=== PATIENT | male | born 1935 | race Caucasian/White ===

== ENCOUNTER 2020-05-06 17:01 | Observation (INO) ==
[2020-05-06 18:25] LABS: Basophils % 0.4 % (0.0-0.8); Eosinophils # 0.1 10*3/uL (0.0-0.87); Eosinophils % 0.7 % (0.00-10.9); Hematocrit 46.8 VOL% (42.0-52.0); Hemoglobin 14.6 GM/DL (14.0-18.0); Immature Granulocytes % 0.9 %; Immature Granulocytes Absolute 0.06 #; Lymphocytes # 1.8 10*3/uL (1.4-4.0); Lymphocytes % 26.4 % (21.2-54.2); Mean Corpuscular HGB Conc 31.2 GM/DL (32-36); Mean Corpuscular Volume 91.2 FL (87-102); Mean Platelet Volume 9.6 FL (9.6-12.0); Monocytes % 10.3 % (1.7-12.7); Neutrophils % 61.3 % (38.7-73.9); Platelet Count 184 T/CUMM (130-400); Red Blood Count 5.13 MC/CUMM (3.8-5.5); Red Cell Distribution Width 13.9 % (9.3-17.3); White Blood Count 6.9 T/CUMM (4-12)
[2020-05-06 18:45] LABS: Albumin 3.3 G/DL (3.4-5.0); Bilirubin,Total 0.5 MG/DL (0.2-1.0); Calcium 9.5 MG/DL (8.5-10.1); Total Protein 7.4 G/DL (6.4-8.3)
[2020-05-06 19:00] LABS: Bilirubin,Urine Negative (Negative); Blood, Urine Negative (Negative); Glucose,Urine (UA) >=500 mg/dL (Negative); Hyaline Casts,Urine 30 /LPF (0-3); Ketones,Urine Negative (Negative); Mucus,Urine Occasional /LPF (Occasional); Nitrite,Urine Negative (Negative); Protein,Urine 30 MG/DL; RBC,Urine 1 /HPF (0-4); Squamous Epithelial Cell,Urine Occasional /HPF (0-10); Urine Appearance CLEAR (Clear); Urine Color Yellow (Yellow); Urine Specific Gravity 1.013 (1.001-1.035); Urine Urobilinogen < 2.0 EU/DL (0.2-1.0); WBC,Urine <1 /HPF (0-6)
[2020-05-06] MEDS ORDERED: SODIUM CHLORIDE 0.9% 1,000 ML IV STA (19:23)
[2020-05-06] MEDS ORDERED: INSULIN REGULAR 100 UNIT/ML IV ONE (19:24)
[2020-05-06] MEDS ORDERED: ASPIRIN 325 MG TABLET PO STA (19:29)
[2020-05-06] MEDS ORDERED: DEXTROSE 50% 25 GM/50 ML VIAL IV PRN (22:31)
[2020-05-06] MEDS ORDERED: GLUCAGON 1 MG VIAL IM PRN (22:31)
[2020-05-06] MEDS ORDERED: ONDANSETRON 4 MG/2 ML VIAL IV PRN (22:31)
[2020-05-06] MEDS ORDERED: INFLUENZA VIRUS VACCINE 0.5 ML SYRINGE IM ONE (22:44)
[2020-05-06] MEDS: DOCUSATE SODIUM 100 MG CAPSULE PO SCH (23:11)
[2020-05-07] MEDS: SODIUM CHLORIDE 0.9% 1,000 ML IV SCH ×4 (02:39→22:24)
[2020-05-07] MEDS ORDERED: GLUCAGON 1 MG VIAL IM PRN (07:56)
[2020-05-07] MEDS ORDERED: DEXTROSE 50% 25 GM/50 ML VIAL IV PRN (07:56)
[2020-05-07] MEDS: sitaGLIPtin 25 MG TABLET PO SCH (09:35)
[2020-05-07] MEDS: DOCUSATE SODIUM 100 MG CAPSULE PO SCH ×2 (09:36→22:24)
[2020-05-07] MEDS: ATORVASTATIN 40 MG TABLET PO SCH (09:36)
[2020-05-07] MEDS: PANTOPRAZOLE 40 MG TABLET PO SCH (09:36)
[2020-05-07] MEDS: ASPIRIN EC 81 MG TABLET PO SCH (09:36)
[2020-05-07] MEDS: lisinopriL 5 MG TABLET PO SCH (09:36)
[2020-05-07] MEDS: INSULIN LISPRO 100 UNIT/ML SUBCUT SCH ×5 (10:52→22:23)
[2020-05-07] MEDS: INSULIN GLARGINE 100 UNIT/ML SUBCUT SCH (10:53)
[2020-05-07] MEDS: ACETAMINOPHEN 325 MG TABLET PO PRN (14:32)
[2020-05-07] MEDS: APIXABAN 2.5 MG TABLET PO SCH (22:24)
[2020-05-08] MEDS: SODIUM CHLORIDE 0.9% 1,000 ML IV SCH ×3 (05:44→23:05)
[2020-05-08] MEDS: INSULIN LISPRO 100 UNIT/ML SUBCUT SCH ×6 (08:04→21:23)
[2020-05-08] MEDS: DOCUSATE SODIUM 100 MG CAPSULE PO SCH ×2 (09:44→21:23)
[2020-05-08] MEDS: ATORVASTATIN 40 MG TABLET PO SCH (09:44)
[2020-05-08] MEDS: INSULIN GLARGINE 100 UNIT/ML SUBCUT SCH (09:44)
[2020-05-08] MEDS: sitaGLIPtin 25 MG TABLET PO SCH (09:44)
[2020-05-08] MEDS: lisinopriL 5 MG TABLET PO SCH (09:45)
[2020-05-08] MEDS: PANTOPRAZOLE 40 MG TABLET PO SCH (09:45)
[2020-05-08] MEDS: APIXABAN 2.5 MG TABLET PO SCH ×2 (09:45→21:23)
[2020-05-08] MEDS: ASPIRIN EC 81 MG TABLET PO SCH (09:45)
[2020-05-08] MEDS: ACETAMINOPHEN 325 MG TABLET PO PRN (18:30)
[2020-05-09 07:55] VITALS: BP 139/64
[2020-05-09] MEDS: INSULIN LISPRO 100 UNIT/ML SUBCUT SCH ×2 (07:56)
== END 2020-05-09 10:10 | disposition home or self-care (01) ==
LOC: N.3E 17:01 → N.ED 17:01 → N.3E 22:04
PROVIDERS: ADMIT Family Medicine; ATTEND Family Medicine

== ENCOUNTER 2022-05-31 07:36 | Inpatient (IN) ==
[2022-05-31] MEDS ORDERED: PIPERACILLIN/TAZOBACTAM 3,375 MG in SODIUM CHLORIDE 0.9% 100 ML IV STA (08:40)
[2022-05-31] MEDS ORDERED: methylPREDNISolone SOD SUC 125 MG/2 ML VIAL IV STA (08:40)
[2022-05-31 08:50] LABS: Albumin 2.1 G/DL (3.4-5.0); Bilirubin,Total 0.5 MG/DL (0.20-1.00); Osmolality,Calculated 281.8 MOS/KG (273-304); Potassium 4.2 MMOL/L (3.5-5.1)
[2022-05-31] MEDS ORDERED: SODIUM CHLORIDE 0.9% 1,000 ML IV STA (09:47)
[2022-05-31] MEDS ORDERED: ONDANSETRON 4 MG/2 ML VIAL IV PRN (10:19)
[2022-05-31] MEDS ORDERED: ACETAMINOPHEN 325 MG TABLET PO PRN (10:19)
[2022-05-31 10:56] LABS: Basophils % 0.2 % (0.0-0.8); Hemoglobin 13.4 GM/DL (14.0-18.0); Immature Granulocytes % 0.7 %; Immature Granulocytes Absolute 0.12 #; Lymphocytes # 0.6 10*3/uL (1.4-4.0); Lymphocytes % 3.6 % (21.2-54.2); Mean Corpuscular HGB Conc 31.9 GM/DL (32-36); Mean Corpuscular Volume 89.2 FL (87-102); Mean Platelet Volume 11.7 FL (9.6-12.0); Monocytes # 0.8 10*3/uL (0.11-0.8); Monocytes % 4.5 % (1.7-12.7); Platelet Count 254 T/CUMM (130-400); Red Blood Count 4.71 MC/CUMM (3.8-5.5); Red Cell Distribution Width 14.2 % (9.3-17.3); White Blood Count 17.7 T/CUMM (4-12)
[2022-05-31 11:41] LABS: Lymphocytes 1 % (20-55); Total Cells Counted 100
[2022-05-31 11:44] LABS: Platelet Estimate Normal
[2022-05-31] MEDS: SODIUM CHLORIDE 0.9% 1,000 ML IV SCH ×2 (12:07→21:17)
[2022-05-31] MEDS ORDERED: NITROGLYCERIN SL 0.4 MG TABLET SL PRN (17:13)
[2022-05-31] MEDS: PIPERACILLIN/TAZOBACTAM 3,375 MG in SODIUM CHLORIDE 0.9% 100 ML IV SCH (19:16)
[2022-05-31] MEDS: DOCUSATE SODIUM 100 MG CAPSULE PO SCH (21:18)
[2022-05-31] MEDS: APIXABAN 2.5 MG TABLET PO SCH (21:18)
[2022-05-31] MEDS: METOPROLOL TARTRATE 25 MG TABLET PO SCH (21:18)
[2022-05-31] MEDS: MIRTAZAPINE 15 MG TABLET PO SCH (21:18)
[2022-05-31] MEDS: PANTOPRAZOLE 40 MG TABLET PO SCH (21:18)
[2022-05-31] MEDS: ZINC OXIDE 20% OINT 28.35 GM TUBE TOP SCH (21:19)
[2022-06-01] MEDS: PIPERACILLIN/TAZOBACTAM 3,375 MG in SODIUM CHLORIDE 0.9% 100 ML IV SCH ×3 (01:46→22:59)
[2022-06-01] MEDS: SODIUM CHLORIDE 0.9% 1,000 ML IV SCH ×3 (04:01→20:24)
[2022-06-01] MEDS ORDERED: INSULIN GLARGINE 100 UNIT/ML SUBCUT SCH (09:00)
[2022-06-01] MEDS: NYSTATIN 500,000 UNIT/5 ML UDCUP PO SCH ×3 (11:04→18:38)
[2022-06-01] MEDS: FLUCONAZOLE 100 MG TABLET PO SCH (11:05)
[2022-06-01] MEDS: ASPIRIN EC 81 MG TABLET PO SCH (11:05)
[2022-06-01] MEDS: APIXABAN 2.5 MG TABLET PO SCH ×2 (11:05→20:45)
[2022-06-01] MEDS: DOCUSATE SODIUM 100 MG CAPSULE PO SCH ×2 (11:05→20:45)
[2022-06-01] MEDS: DILTIAZEM CD 240 MG CAPSULE PO SCH (11:05)
[2022-06-01] MEDS: ATORVASTATIN 40 MG TABLET PO SCH (11:06)
[2022-06-01] MEDS: FOLIC ACID 1 MG TABLET PO SCH (11:06)
[2022-06-01] MEDS: FUROSEMIDE 20 MG TABLET PO SCH (11:06)
[2022-06-01] MEDS: METOPROLOL TARTRATE 25 MG TABLET PO SCH ×2 (11:07→20:45)
[2022-06-01] MEDS: PANTOPRAZOLE 40 MG TABLET PO SCH ×3 (11:07→20:46)
[2022-06-01] MEDS: SERTRALINE 50 MG TABLET PO SCH (11:10)
[2022-06-01] MEDS: ZINC OXIDE 20% OINT 28.35 GM TUBE TOP SCH (11:37)
[2022-06-01] MEDS: ZINC OXIDE 16% PASTE 57 GM TUBE TOP SCH ×2 (11:54→20:46)
[2022-06-01] MEDS ORDERED: GLUCAGON 1 MG VIAL IM PRN (12:58)
[2022-06-01] MEDS: INSULIN LISPRO 100 UNIT/ML SUBCUT SCH ×2 (17:15→20:46)
[2022-06-01] MEDS: MIRTAZAPINE 15 MG TABLET PO SCH (20:45)
[2022-06-02] MEDS: SODIUM CHLORIDE 0.9% 1,000 ML IV SCH ×3 (02:01→20:27)
[2022-06-02] MEDS: PIPERACILLIN/TAZOBACTAM 3,375 MG in SODIUM CHLORIDE 0.9% 100 ML IV SCH ×3 (06:31→20:30)
[2022-06-02] MEDS: NYSTATIN 500,000 UNIT/5 ML UDCUP PO SCH ×3 (10:51→18:06)
[2022-06-02] MEDS: ASPIRIN EC 81 MG TABLET PO SCH (10:52)
[2022-06-02] MEDS: DILTIAZEM CD 240 MG CAPSULE PO SCH (10:53)
[2022-06-02] MEDS: FLUCONAZOLE 100 MG TABLET PO SCH (10:53)
[2022-06-02] MEDS: DOCUSATE SODIUM 100 MG CAPSULE PO SCH ×2 (10:53→20:22)
[2022-06-02] MEDS: APIXABAN 2.5 MG TABLET PO SCH ×2 (10:53→20:22)
[2022-06-02] MEDS: FOLIC ACID 1 MG TABLET PO SCH (10:54)
[2022-06-02] MEDS: ATORVASTATIN 40 MG TABLET PO SCH (10:54)
[2022-06-02] MEDS: INSULIN GLARGINE 100 UNIT/ML SUBCUT SCH ×2 (10:54→20:23)
[2022-06-02] MEDS: FUROSEMIDE 20 MG TABLET PO SCH (10:54)
[2022-06-02] MEDS: PANTOPRAZOLE 40 MG TABLET PO SCH ×3 (10:55→20:23)
[2022-06-02] MEDS: METOPROLOL TARTRATE 25 MG TABLET PO SCH ×2 (10:55→20:23)
[2022-06-02] MEDS: SERTRALINE 50 MG TABLET PO SCH (10:56)
[2022-06-02] MEDS: ZINC OXIDE 16% PASTE 57 GM TUBE TOP SCH ×2 (10:56→20:31)
[2022-06-02] MEDS: INSULIN LISPRO 100 UNIT/ML SUBCUT SCH ×3 (18:09→20:22)
[2022-06-02] MEDS: MIRTAZAPINE 15 MG TABLET PO SCH (20:24)
[2022-06-03] MEDS: SODIUM CHLORIDE 0.9% 1,000 ML IV SCH ×4 (01:54→16:42)
[2022-06-03] MEDS: PIPERACILLIN/TAZOBACTAM 3,375 MG in SODIUM CHLORIDE 0.9% 100 ML IV SCH ×3 (04:04→20:16)
[2022-06-03 04:59] LABS: Basophils % 0.2 % (0.0-0.8); Eosinophils # 0.2 10*3/uL (0.0-0.87); Eosinophils % 1.8 % (0.00-10.9); Hematocrit 38.9 VOL% (42.0-52.0); Immature Granulocytes % 1.4 %; Immature Granulocytes Absolute 0.13 #; Lymphocytes % 10.4 % (21.2-54.2); Mean Corpuscular HGB Conc 30.8 GM/DL (32-36); Mean Corpuscular Volume 90.9 FL (87-102); Mean Platelet Volume 10.9 FL (9.6-12.0); Monocytes # 0.6 10*3/uL (0.11-0.8); Monocytes % 6.9 % (1.7-12.7); Neutrophils % 79.3 % (38.7-73.9); Platelet Count 297 T/CUMM (130-400); Red Blood Count 4.28 MC/CUMM (3.8-5.5); Red Cell Distribution Width 14.7 % (9.3-17.3); White Blood Count 9.1 T/CUMM (4-12)
[2022-06-03] MEDS: DEXTROSE 10% 250 ML BAG IV PRN ×3 (07:55→23:18)
[2022-06-03] MEDS: NYSTATIN 500,000 UNIT/5 ML UDCUP PO SCH ×2 (08:05→12:39)
[2022-06-03] MEDS: INSULIN LISPRO 100 UNIT/ML SUBCUT SCH ×4 (08:05→20:18)
[2022-06-03] MEDS: FLUCONAZOLE 100 MG TABLET PO SCH (08:06)
[2022-06-03] MEDS: ASPIRIN EC 81 MG TABLET PO SCH (08:06)
[2022-06-03] MEDS: FOLIC ACID 1 MG TABLET PO SCH (08:06)
[2022-06-03] MEDS: APIXABAN 2.5 MG TABLET PO SCH (08:06)
[2022-06-03] MEDS: DOCUSATE SODIUM 100 MG CAPSULE PO SCH (08:06)
[2022-06-03] MEDS: DILTIAZEM CD 240 MG CAPSULE PO SCH (08:06)
[2022-06-03] MEDS: FUROSEMIDE 20 MG TABLET PO SCH (08:07)
[2022-06-03] MEDS: INSULIN GLARGINE 100 UNIT/ML SUBCUT SCH (08:07)
[2022-06-03] MEDS: SERTRALINE 50 MG TABLET PO SCH (08:07)
[2022-06-03] MEDS: METOPROLOL TARTRATE 25 MG TABLET PO SCH (08:07)
[2022-06-03] MEDS: PANTOPRAZOLE 40 MG TABLET PO SCH ×2 (08:07)
[2022-06-03] MEDS: ATORVASTATIN 40 MG TABLET PO SCH (08:07)
[2022-06-03] MEDS: ZINC OXIDE 16% PASTE 57 GM TUBE TOP SCH ×2 (08:10→20:17)
[2022-06-03] MEDS: FUROSEMIDE 20 MG/2 ML VIAL IV SCH (14:43)
[2022-06-03] MEDS: ENOXAPARIN 30 MG/0.3 ML SYRINGE SUBCUT SCH (14:44)
[2022-06-03] MEDS ORDERED: FUROSEMIDE 40 MG/4 ML VIAL IV ONE ×2 (15:04→17:00)
[2022-06-04] MEDS: PIPERACILLIN/TAZOBACTAM 3,375 MG in SODIUM CHLORIDE 0.9% 100 ML IV SCH ×3 (03:37→20:51)
[2022-06-04] MEDS: SODIUM CHLORIDE 0.9% 1,000 ML IV SCH (04:47)
[2022-06-04] MEDS: INSULIN LISPRO 100 UNIT/ML SUBCUT SCH ×4 (08:50→20:03)
[2022-06-04] MEDS: FUROSEMIDE 20 MG/2 ML VIAL IV SCH (08:51)
[2022-06-04] MEDS: ZINC OXIDE 16% PASTE 57 GM TUBE TOP SCH ×2 (08:52→20:53)
[2022-06-04] MEDS: ENOXAPARIN 30 MG/0.3 ML SYRINGE SUBCUT SCH (15:54)
[2022-06-05] MEDS: PIPERACILLIN/TAZOBACTAM 3,375 MG in SODIUM CHLORIDE 0.9% 100 ML IV SCH ×2 (03:27→13:53)
[2022-06-05] MEDS: SODIUM CHLORIDE 0.9% 1,000 ML IV SCH (03:39)
[2022-06-05 06:02] LABS: Calcium 8.7 MG/DL (8.5-10.1); Osmolality,Calculated 282.3 MOS/KG (273-304); Potassium 2.9 MMOL/L (3.5-5.1)
[2022-06-05] MEDS: INSULIN LISPRO 100 UNIT/ML SUBCUT SCH ×4 (07:45→21:49)
[2022-06-05] MEDS: POTASSIUM CHLORIDE RIDER 10 MEQ/100 ML PREMIX IV PRN ×4 (09:51→15:25)
[2022-06-05] MEDS ORDERED: MAGNESIUM SULF RIDER 4 GM/100 ML PREMIX IV PRN (10:15)
[2022-06-05] MEDS: ZINC OXIDE 16% PASTE 57 GM TUBE TOP SCH ×2 (11:09→21:49)
[2022-06-05] MEDS: FUROSEMIDE 20 MG/2 ML VIAL IV SCH (11:18)
[2022-06-05] MEDS ORDERED: ALBUTEROL/IPRATROPIUM 3 ML NEB RESP TX PRN (15:13)
[2022-06-05] MEDS: ENOXAPARIN 30 MG/0.3 ML SYRINGE SUBCUT SCH (15:43)
[2022-06-05] MEDS: DEXTROSE 5% NACL 0.45% 1,000 ML IV SCH (18:57)
[2022-06-06] MEDS: PIPERACILLIN/TAZOBACTAM 3,375 MG in SODIUM CHLORIDE 0.9% 100 ML IV SCH ×3 (01:34→18:18)
[2022-06-06] MEDS: INSULIN LISPRO 100 UNIT/ML SUBCUT SCH ×4 (07:27→20:48)
[2022-06-06] MEDS: FUROSEMIDE 20 MG/2 ML VIAL IV SCH (11:17)
[2022-06-06] MEDS ORDERED: hydrALAZINE 20 MG/1 ML VIAL IV PRN (11:22)
[2022-06-06] MEDS: ZINC OXIDE 16% PASTE 57 GM TUBE TOP SCH ×2 (14:15→21:20)
[2022-06-06] MEDS: DEXTROSE 5% NACL 0.45% 1,000 ML IV SCH ×2 (15:10→16:01)
[2022-06-07] MEDS: PIPERACILLIN/TAZOBACTAM 3,375 MG in SODIUM CHLORIDE 0.9% 100 ML IV SCH ×3 (01:38→17:39)
[2022-06-07] MEDS: DEXTROSE 5% NACL 0.45% 1,000 ML IV SCH ×2 (01:47→15:25)
[2022-06-07 05:16] LABS: Calcium 8.4 MG/DL (8.5-10.1); Osmolality,Calculated 279.5 MOS/KG (273-304); Potassium 3.4 MMOL/L (3.5-5.1)
[2022-06-07 07:42] LABS: Basophils # 0.1 10*3/uL (0.0-0.2); Basophils % 0.9 % (0.0-0.8); Eosinophils # 0.4 10*3/uL (0.0-0.87); Eosinophils % 6.2 % (0.00-10.9); Hematocrit 40.8 VOL% (42.0-52.0); Hemoglobin 12.6 GM/DL (14.0-18.0); Immature Granulocytes % 7.1 %; Immature Granulocytes Absolute 0.41 #; Lymphocytes # 0.7 10*3/uL (1.4-4.0); Lymphocytes % 12.1 % (21.2-54.2); Mean Corpuscular HGB Conc 30.9 GM/DL (32-36); Mean Corpuscular Volume 90.5 FL (87-102); Mean Platelet Volume 10.8 FL (9.6-12.0); Monocytes # 0.6 10*3/uL (0.11-0.8); Monocytes % 10.9 % (1.7-12.7); Neutrophils % 62.8 % (38.7-73.9); Platelet Count 298 T/CUMM (130-400); Red Blood Count 4.51 MC/CUMM (3.8-5.5); Red Cell Distribution Width 14.3 % (9.3-17.3); White Blood Count 5.8 T/CUMM (4-12)
[2022-06-07 08:00] LABS: Band Neutrophils 1 % (0-10); Eosinophils 11 % (0-10); Lymphocytes 10 % (20-55); Platelet Estimate Adequate; Total Cells Counted 100
[2022-06-07 08:01] LABS: Hypochromia Slight; Microcytosis Slight
[2022-06-07 08:16] LABS: INR 1.1; PT Patient Result 12.3 SECS (10.1-12.1)
[2022-06-07] MEDS ORDERED: LACTATED RINGERS 1,000 ML IV SCH (08:30)
[2022-06-07] MEDS: INSULIN LISPRO 100 UNIT/ML SUBCUT SCH ×4 (09:17→21:27)
[2022-06-07] MEDS: FUROSEMIDE 20 MG/2 ML VIAL IV SCH (09:17)
[2022-06-07] MEDS: ZINC OXIDE 16% PASTE 57 GM TUBE TOP SCH ×2 (09:20→21:27)
[2022-06-07] MEDS: MAGNESIUM SULF RIDER 2 GM/50 ML PREMIX IV PRN (09:23)
[2022-06-07] MEDS ORDERED: propofoL 200 MG/20 ML VIAL IV ONE (14:18)
[2022-06-07] MEDS ORDERED: ETOMIDATE 20 MG/10 ML VIAL IV ONE (14:18)
[2022-06-07] MEDS ORDERED: LIDOCAINE 2% 5 ML VIAL ONE (14:18)
[2022-06-08] MEDS: PIPERACILLIN/TAZOBACTAM 3,375 MG in SODIUM CHLORIDE 0.9% 100 ML IV SCH ×3 (01:55→17:03)
[2022-06-08] MEDS: DEXTROSE 5% NACL 0.45% 1,000 ML IV SCH ×2 (06:00→15:58)
[2022-06-08 06:01] LABS: Phosphorous 1.9 MG/DL (2.5-4.9)
[2022-06-08] MEDS: INSULIN LISPRO 100 UNIT/ML SUBCUT SCH ×4 (08:44→21:03)
[2022-06-08] MEDS: MAGNESIUM SULF RIDER 2 GM/50 ML PREMIX IV PRN (08:45)
[2022-06-08] MEDS: FUROSEMIDE 20 MG/2 ML VIAL IV SCH (08:45)
[2022-06-08] MEDS: ZINC OXIDE 16% PASTE 57 GM TUBE TOP SCH ×2 (08:46→21:54)
[2022-06-08] MEDS: DILTIAZEM 50 MG/10 ML VIAL IV PRN (21:49)
[2022-06-08] MEDS: DILTIAZEM INJ 100 MG in SODIUM CHLORIDE 0.9% 100 ML IV SCH (22:11)
[2022-06-09] MEDS: DEXTROSE 5% NACL 0.45% 1,000 ML IV SCH ×3 (01:10→20:55)
[2022-06-09] MEDS: PIPERACILLIN/TAZOBACTAM 3,375 MG in SODIUM CHLORIDE 0.9% 100 ML IV SCH ×3 (04:12→17:26)
[2022-06-09 07:12] LABS: Osmolality,Calculated 275.1 MOS/KG (273-304); Potassium 2.7 MMOL/L (3.5-5.1)
[2022-06-09] MEDS ORDERED: POTASSIUM CHLORIDE 20 MEQ TABLET PO ONE (07:18)
[2022-06-09] MEDS ORDERED: MAGNESIUM SULF RIDER 2 GM/50 ML PREMIX IV ONE (07:18)
[2022-06-09] MEDS: INSULIN LISPRO 100 UNIT/ML SUBCUT SCH ×4 (08:14→20:53)
[2022-06-09] MEDS: FUROSEMIDE 20 MG/2 ML VIAL IV SCH (08:15)
[2022-06-09] MEDS: ZINC OXIDE 16% PASTE 57 GM TUBE TOP SCH ×2 (08:16→20:53)
[2022-06-09] MEDS: DILTIAZEM 60 MG TABLET PO SCH ×2 (16:21→20:55)
[2022-06-09] MEDS: ENOXAPARIN 30 MG/0.3 ML SYRINGE SUBCUT SCH (16:23)
[2022-06-09] MEDS: METOPROLOL TARTRATE 25 MG TABLET PO SCH (20:53)
[2022-06-10] MEDS: DILTIAZEM INJ 100 MG in SODIUM CHLORIDE 0.9% 100 ML IV SCH (00:52)
[2022-06-10] MEDS: PIPERACILLIN/TAZOBACTAM 3,375 MG in SODIUM CHLORIDE 0.9% 100 ML IV SCH (01:49)
[2022-06-10] MEDS: DEXTROSE 5% NACL 0.45% 1,000 ML IV SCH ×2 (05:23→08:09)
[2022-06-10] MEDS: ATORVASTATIN 40 MG TABLET PO SCH (08:04)
[2022-06-10] MEDS: DILTIAZEM 60 MG TABLET PO SCH ×4 (08:04→21:06)
[2022-06-10] MEDS: FOLIC ACID 1 MG TABLET PO SCH (08:04)
[2022-06-10] MEDS: SERTRALINE 50 MG TABLET PO SCH (08:04)
[2022-06-10] MEDS: ASPIRIN EC 81 MG TABLET PO SCH (08:04)
[2022-06-10] MEDS: OMEPRAZOLE ODT 20 MG TABLET PO SCH (08:05)
[2022-06-10] MEDS: METOPROLOL TARTRATE 25 MG TABLET PO SCH ×2 (08:05→21:05)
[2022-06-10] MEDS: INSULIN LISPRO 100 UNIT/ML SUBCUT SCH ×4 (08:05→21:06)
[2022-06-10] MEDS: ZINC OXIDE 16% PASTE 57 GM TUBE TOP SCH ×2 (08:06→21:05)
[2022-06-10] MEDS: FUROSEMIDE 20 MG/2 ML VIAL IV SCH (08:06)
[2022-06-10] MEDS: POTASSIUM CHLORIDE 20 MEQ TABLET PO PRN ×4 (09:03→15:52)
[2022-06-10] MEDS: MAGNESIUM SULF RIDER 2 GM/50 ML PREMIX IV PRN (10:30)
[2022-06-10] MEDS: APIXABAN 2.5 MG TABLET PO SCH (21:06)
[2022-06-11] MEDS: DILTIAZEM 50 MG/10 ML VIAL IV PRN (04:27)
[2022-06-11] MEDS ORDERED: DILTIAZEM 50 MG/10 ML VIAL IV ONE (05:40)
[2022-06-11] MEDS: DILTIAZEM INJ 100 MG in SODIUM CHLORIDE 0.9% 100 ML IV SCH (05:43)
[2022-06-11] MEDS: INSULIN LISPRO 100 UNIT/ML SUBCUT SCH ×2 (09:27→12:06)
[2022-06-11] MEDS: FOLIC ACID 1 MG TABLET PO SCH (09:28)
[2022-06-11] MEDS: ASPIRIN EC 81 MG TABLET PO SCH (09:28)
[2022-06-11] MEDS: APIXABAN 2.5 MG TABLET PO SCH (09:28)
[2022-06-11] MEDS: FUROSEMIDE 20 MG/2 ML VIAL IV SCH (09:28)
[2022-06-11] MEDS: SERTRALINE 50 MG TABLET PO SCH (09:28)
[2022-06-11] MEDS: METOPROLOL TARTRATE 25 MG TABLET PO SCH (09:28)
[2022-06-11] MEDS: ATORVASTATIN 40 MG TABLET PO SCH (09:28)
[2022-06-11] MEDS: ZINC OXIDE 16% PASTE 57 GM TUBE TOP SCH (09:29)
[2022-06-11] MEDS: DILTIAZEM 60 MG TABLET PO SCH ×2 (10:19→12:06)
[2022-06-11] MEDS: OMEPRAZOLE ODT 20 MG TABLET PO SCH (10:19)
[2022-06-11 14:13] VITALS: BP 118/56
== END 2022-06-11 14:15 | disposition swing bed (61) | DRG 177 ==
LOC: EDUNIT# → N.EDINP 07:36 → N.ED 07:36 → N.TELES 17:32
PROVIDERS: ADMIT Family Medicine; ATTEND Family Medicine
PROC: EGDWPEG (ICD-10-PCS; 2022-06-07 07:50)

== ENCOUNTER 2022-08-02 22:52 | Inpatient (IN) ==
[2022-08-02 23:32] LABS: Basophils % 0.2 % (0.0-0.8); Eosinophils # 0.1 10*3/uL (0.0-0.87); Eosinophils % 0.4 % (0.00-10.9); Hematocrit 34.6 VOL% (42.0-52.0); Hemoglobin 10.4 GM/DL (14.0-18.0); Immature Granulocytes % 4.2 %; Immature Granulocytes Absolute 0.57 #; Lymphocytes # 0.9 10*3/uL (1.4-4.0); Lymphocytes % 6.3 % (21.2-54.2); Mean Corpuscular HGB Conc 30.1 GM/DL (32-36); Mean Corpuscular Volume 90.3 FL (87-102); Mean Platelet Volume 11.2 FL (9.6-12.0); Monocytes # 1.3 10*3/uL (0.11-0.8); Monocytes % 9.3 % (1.7-12.7); NRBC # 0.04 10*3/uL; Neutrophils % 79.6 % (38.7-73.9); Platelet Count 244 T/CUMM (130-400); Red Blood Count 3.83 MC/CUMM (3.8-5.5); Red Cell Distribution Width 18.6 % (9.3-17.3); White Blood Count 13.6 T/CUMM (4-12)
[2022-08-02 23:40] LABS: Alanine Aminotransferase 24 U/L (16-61); Alkaline Phosphatase 108 U/L (45-117); Aspartate Amino Transferase 24 U/L (0-37); Bilirubin,Total < 0.39 MG/DL (0.20-1.00); Blood Urea Nitrogen 51 MG/DL (7-18); Calcium 8.1 MG/DL (8.5-10.1); Carbon Dioxide 31 MMOL/L (21-32); Chloride 91 MMOL/L (98-107); Glucose 278 MG/DL (74-106); Osmolality,Calculated 285.7 MOS/KG (273-304); Potassium 4.6 MMOL/L (3.5-5.1); Sodium 131 MMOL/L (136-145); Total Protein 5.6 G/DL (6.4-8.2)
[2022-08-02 23:43] LABS: PT Patient Result 11.4 SECS (10.1-12.1); Partial Thromboplastin Time 31.5 SECS (23.7-32.9)
[2022-08-02] MEDS ORDERED: SODIUM CHLORIDE 0.9% 1,000 ML IV STA (23:45)
[2022-08-02 23:53] LABS: Arterial Base Excess iSTAT 9 MMOL/L (-2.5-2.5); Arterial Bicarbonate iSTAT 31.9 MMOL/L (20-26); Arterial O2 Saturation iSTAT 92 % (95-100); Arterial PCO2 iSTAT 37 MM HG (35-48); Arterial PO2 iSTAT 56 MM HG (80-95); Arterial Total CO2 iSTAT 33 MMO/L (23-27); Arterial pH iSTAT 7.543 (7.35-7.45)
[2022-08-03 00:18] LABS: Lymphocytes 7 % (20-55); Nucleated Red Blood Cells 1 /100 WBC (0-5); Platelet Estimate Adequate; Polychromasia 1+; Total Cells Counted 100
[2022-08-03] MEDS ORDERED: PIPERACILLIN/TAZOBACTAM 3,375 MG in SODIUM CHLORIDE 0.9% 100 ML IV STA (00:23)
[2022-08-03] MEDS ORDERED: VANCOMYCIN INJ 1,000 MG in SODIUM CHLORIDE 0.9% 250 ML IV STA (00:23)
[2022-08-03] MEDS ORDERED: ACETAMINOPHEN 325 MG TABLET PO PRN (00:27)
[2022-08-03] MEDS ORDERED: BISACODYL 5 MG TABLET PO PRN (00:27)
[2022-08-03] MEDS ORDERED: ONDANSETRON 4 MG/2 ML VIAL IV PRN (00:27)
[2022-08-03 00:33] LABS: Bacteria,Urine Many /HPF (Few); Bilirubin,Urine Negative (Negative); Blood, Urine Trace mg/dL (Negative); Glucose,Urine (UA) 100 mg/dL (Negative); Ketones,Urine Negative (Negative); Mucus,Urine Occasional /LPF (Occasional); Nitrite,Urine Negative (Negative); Protein,Urine 100 mg/dL (Negative); RBC,Urine 6 /HPF (0-4); Urine Appearance CLOUDY (Clear); Urine Color Yellow (Yellow); Urine Specific Gravity 1.015 (1.001-1.035); Urine Urobilinogen 0.2 eU/dL (<2.0)
[2022-08-03] MEDS: LACTATED RINGERS 1,000 ML IV SCH ×3 (01:15→20:55)
[2022-08-03] MEDS ORDERED: METOPROLOL TARTRATE 25 MG TABLET PO STA (02:52)
[2022-08-03] MEDS ORDERED: DILTIAZEM 60 MG TABLET PO ONE (02:54)
[2022-08-03] MEDS ORDERED: DILTIAZEM 30 MG TABLET PO ONE ×2 (02:56)
[2022-08-03 04:19] LABS: Osmolality,Calculated 280.5 MOS/KG (273-304); Potassium 4.2 MMOL/L (3.5-5.1)
[2022-08-03 04:23] LABS: Basophils % 0.3 % (0.0-0.8); Eosinophils # 0.1 10*3/uL (0.0-0.87); Eosinophils % 0.4 % (0.00-10.9); Hematocrit 30.8 VOL% (42.0-52.0); Immature Granulocytes % 4.8 %; Immature Granulocytes Absolute 0.68 #; Lymphocytes # 0.8 10*3/uL (1.4-4.0); Lymphocytes % 5.6 % (21.2-54.2); Mean Corpuscular HGB Conc 29.2 GM/DL (32-36); Mean Corpuscular Volume 90.9 FL (87-102); Mean Platelet Volume 10.7 FL (9.6-12.0); Monocytes # 1.4 10*3/uL (0.11-0.8); NRBC # 0.05 10*3/uL; Neutrophils % 78.9 % (38.7-73.9); Platelet Count 233 T/CUMM (130-400); Red Blood Count 3.39 MC/CUMM (3.8-5.5); Red Cell Distribution Width 18.8 % (9.3-17.3); White Blood Count 14.3 T/CUMM (4-12)
[2022-08-03 04:32] LABS: Eosinophils 1 % (0-10); Hypochromia Slight; Lymphocytes 1 % (20-55); Platelet Estimate Adequate; Total Cells Counted 100
[2022-08-03 04:33] LABS: Microcytosis Slight
[2022-08-03] MEDS ORDERED: DILTIAZEM 25 MG/5 ML VIAL IV STA (06:59)
[2022-08-03] MEDS ORDERED: DILTIAZEM 50 MG/10 ML VIAL IV STA (08:06)
[2022-08-03] MEDS: PIPERACILLIN/TAZOBACTAM 3,375 MG in SODIUM CHLORIDE 0.9% 100 ML IV SCH ×2 (08:25→20:15)
[2022-08-03] MEDS ORDERED: DILTIAZEM INJ 100 MG in SODIUM CHLORIDE 0.9% 100 ML IV SCH (08:30)
[2022-08-03] MEDS: PANTOPRAZOLE 40 MG VIAL IV SCH (11:07)
[2022-08-03] MEDS: DOCUSATE SODIUM 100 MG CAPSULE PO SCH ×2 (11:07→21:06)
[2022-08-03] MEDS: DILTIAZEM INJ 100 MG in SODIUM CHLORIDE 0.9% 100 ML IV SCH (20:50)
[2022-08-04] MEDS: PIPERACILLIN/TAZOBACTAM 3,375 MG in SODIUM CHLORIDE 0.9% 100 ML IV SCH ×4 (00:57→23:49)
[2022-08-04] MEDS ORDERED: METOPROLOL TARTRATE 25 MG TABLET PO ONE (03:45)
[2022-08-04] MEDS: DILTIAZEM INJ 100 MG in SODIUM CHLORIDE 0.9% 100 ML IV SCH ×2 (03:51→10:35)
[2022-08-04] MEDS: DILTIAZEM 60 MG TABLET PO SCH ×4 (10:47→22:25)
[2022-08-04] MEDS: PANTOPRAZOLE 40 MG VIAL IV SCH (10:47)
[2022-08-04] MEDS: APIXABAN 2.5 MG TABLET PO SCH ×2 (10:47→22:25)
[2022-08-04] MEDS: DOCUSATE SODIUM 100 MG CAPSULE PO SCH ×2 (10:47→22:25)
[2022-08-04] MEDS: METOPROLOL TARTRATE 25 MG TABLET PO SCH ×2 (10:48→22:25)
[2022-08-04] MEDS: LACTATED RINGERS 1,000 ML IV SCH ×2 (14:15→23:41)
[2022-08-04] MEDS ORDERED: FUROSEMIDE 40 MG/4 ML VIAL IV ONE (19:48)
[2022-08-05] MEDS: DILTIAZEM 60 MG TABLET PO SCH ×4 (09:36→21:11)
[2022-08-05] MEDS: METOPROLOL TARTRATE 25 MG TABLET PO SCH ×2 (09:36→21:08)
[2022-08-05] MEDS: APIXABAN 2.5 MG TABLET PO SCH ×2 (09:37→21:09)
[2022-08-05] MEDS: DOCUSATE SODIUM 100 MG CAPSULE PO SCH ×2 (09:37→21:08)
[2022-08-05] MEDS: PANTOPRAZOLE 40 MG VIAL IV SCH (09:44)
[2022-08-05] MEDS: PIPERACILLIN/TAZOBACTAM 3,375 MG in SODIUM CHLORIDE 0.9% 100 ML IV SCH ×2 (10:05→18:34)
[2022-08-05] MEDS ORDERED: TUBERCULIN SKIN TEST 0.1 ML SYRINGE INTRADERM ONE (10:43)
[2022-08-06] MEDS: PIPERACILLIN/TAZOBACTAM 3,375 MG in SODIUM CHLORIDE 0.9% 100 ML IV SCH ×2 (01:28→10:38)
[2022-08-06 08:32] VITALS: BP 150/77
[2022-08-06] MEDS: DILTIAZEM 60 MG TABLET PO SCH (10:39)
[2022-08-06] MEDS: APIXABAN 2.5 MG TABLET PO SCH (10:39)
[2022-08-06] MEDS: DOCUSATE SODIUM 100 MG CAPSULE PO SCH (10:39)
[2022-08-06] MEDS: METOPROLOL TARTRATE 25 MG TABLET PO SCH (10:40)
[2022-08-06] MEDS: PANTOPRAZOLE 40 MG VIAL IV SCH (10:40)
== END 2022-08-06 11:18 | DRG 181 ==
LOC: N.ED 22:52 → N.EDINP 08-03 00:27 → N.TELEN 08-03 18:38
PROVIDERS: ADMIT Family Medicine; ATTEND Family Medicine